=== PATIENT | female | born 1980 | race Caucasian/White ===

== ENCOUNTER → 2019-01-21 | Outpatient (CLI) | payer OTHER ==
[~2019-01-21] VITALS: Ht 154.9 cm; Wt 50.8 kg
[~2019-01-21] MED LIST: ALEVE220 M1 PO; AMBIEN 5 MG TABL5 M1 PO; AMPHETAMINE SAL30 MG PO; BENTYL 10 MG CA10 M1 PO; CRYSELLE1 EACH PO; OXYCODONE HCL10 MG PO; TIZANIDINE HCL4 M1 PO; XANAX1 MG PO
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
[2019-01-21 10:35] VITALS: BP 138/84
--- NOTE | 2019-01-21 10:55 | NUR ---
Pain Clinic Assessment: 1. History of Osteoarthritis: History of Rheumatoid Arthritis: 2. Height: 5 ft. 1 in. 154.9 cm. Weight: 112.0 lb. oz. 50.803 kg. Patient's BMI: 21.2 3. Vital Signs: BP: 138/84 Pulse: 112 Resp: 16 Temp: 02 Sat: 100 ECG Mon: 4. Pain Intensity: 8 5. Fall Risk: Dizziness: N Needs help standing or walking: N Fallen in the last 3 months: N Fall risk comments: 6. Patient on Blood Thinner: None 7. History of Hypertension: N 8. Opioid Therapy greater than 6 weeks: Y Opiate Contract Signed: 9. Risk Assessment Tool Provided: 10. Functional Assessment Tool: LOW 11. Recreational Drug Use: Never Drug Type: Tobacco Use: Current Every Day Smoker Tobacco Type: Cigarettes Amount or Packs/day: 5 CIGS How Many Years: 22 Alcohol Use: No Frequency: Quant:
== END ==
LOC: PAIN 11-29 16:35
DX: M54.2 Cervicalgia (principal); Z79.899 Other long term (current) drug therapy